=== PATIENT | female | born 1965 | race Caucasian/White ===

== ENCOUNTER 2017-11-28 17:02 | Emergency (ER) | payer BC ==
[2017-11-28] MEDS ORDERED: Iopamidol 755 Mg/ML 75 ML Bottle IV ONE (18:32)
[2017-11-28] MEDS ORDERED: Ketorolac 30 MG/ML SDV IM ONE (20:11)
[2017-11-28] MEDS ORDERED: Cephalexin 500 MG Cap PO ONE (20:12)
--- NOTE | 2017-11-28 20:40 | EDM.PDOC ---
ED HPI GENERAL MEDICAL PROBLEM - General Chief Complaint: Flank Pain Stated Complaint: KIDNEY ISSUES BUT HBP Time Seen by Provider: 11/28/17 17:48 Source of Information: Reports: Patient History Limitations: Reports: No Limitations - History of Present Illness INITIAL COMMENTS - FREE TEXT/NARRATIVE: This pleasant 51-year-old nonsmoking woman has had low back pain 4-5 out of 10 in the past 3 days not resolved by Tylenol, she has felt warm, drinks 64 ounces of fluid a day, she is worried she may have a kidney stone or kidney infection. She's had 4 previous episode of pyelonephritis/kidney infections). She is worried she might have a tumor and is slightly tearful at the thought. In the past she's had significant two months hospitalization for a large abdominal midline incision that healed by secondary intention after she was explored for a abscess in her abdomen etiology indeterminate. No history of cancer. 2 years ago was her last kidney infection. She is smokes a half to three quarters pack for 22 years and 2 packs a day for 10 years for a total of 30+ pack years of smoking. flanks annika Pain Score (Numeric/FACES): 5 - Related Data Allergies Allergy/AdvReac Type Severity Reaction Status Date / Time No Known Allergies Allergy Verified 11/28/17 17:22 Home Meds: Home Meds Cephalexin [Keflex] 500 mg PO QID #40 capsule 11/28/17 [Rx] Past Medical History Gastrointestinal History: Reports: Other (See Below) Other Gastrointestinal History: abd abscess with multiple surgeries Genitourinary History: Reports: Pyelonephritis Social & Family History - Tobacco Use Smoking Status *Q: Current Every Day Smoker Years of Tobacco use: 30 Packs/Tins Daily: 0.5 - Recreational Drug Use Recreational Drug Use: No ED ROS GENERAL - Review of Systems Review Of Systems: See Below Constitutional: Reports: No Symptoms HEENT: Reports: No Symptoms Respiratory: Reports: No Symptoms, Shortness of Breath, Cough Cardiovascular: Reports: No Symptoms Endocrine: Reports: No Symptoms GI/Abdominal: Reports: Abdominal Pain : Reports: Flank Pain Musculoskeletal: Reports: No Symptoms Skin: Reports: No Symptoms Neurological: Reports: No Symptoms Hematologic/Lymphatic: Reports: No Symptoms Immunologic: Reports: No Symptoms Free Text/Narrative/Comment: Mild polyuria polydipsia drinks 64 ounces of fluid per day ED EXAM, RENAL/ - Physical Exam Exam: See Below Text/Narrative:: Pleasant anesthetic pulmonary attended by her who looks older than her age (cigarette smoker 30+ years pack years) Exam Limited By: No Limitations General Appearance: Alert, Mild Distress Eye Exam: Bilateral Eye: Normal Inspection Ears: Normal External Exam, Normal Canal, Hearing Grossly Normal, Normal TMs Nose: Normal Inspection, Normal Mucosa, No Blood Throat/Mouth: Normal Inspection, Normal Lips, Normal Teeth, Normal Gums, Normal Oropharynx, Normal Voice Head: Atraumatic, Normocephalic Neck: Normal Inspection, Supple, Non-Tender Respiratory/Chest: No Respiratory Distress, Rales, Other (Rales bilateral posterior lower 50% of her lungs) Cardiovascular: Normal Peripheral Pulses, Regular Rate, Rhythm, No Edema, No Gallop, Other (Systolic harsh 2/6 crescendo decrescendo murmur left second parasternal intercostal space and right parasternal intercostal space) GI/Abdominal: Normal Bowel Sounds (Female) Exam: Deferred Rectal (Female) Exam: Deferred Back Exam: Normal Inspection, CVA Tenderness (R), CVA Tenderness (L) Extremities: Normal Inspection, Normal Range of Motion, Non-Tender, No Pedal Edema Neurological: Alert, Oriented, CN II-XII Intact, Normal Cognition, Normal Gait, Normal Reflexes Psychiatric: Normal Affect, Other (Was tearful when she began to talk about anxiety about having a potential lung cancer from smoking) Skin Exam: Warm, Intact, Normal Color, No Rash, Other (Large anterior benign abdominal incision upper 50% widened scarred nontender) Lymphatic: No Adenopathy Course - Vital Signs Last Recorded V/S: Last Vital Signs Temp 36.3 C 11/28/17 17:05 Pulse 90 11/28/17 19:35 Resp 16 11/28/17 19:35 BP 161/94 H 11/28/17 19:35 Pulse Ox 93 L 11/28/17 19:35 - Orders/Labs/Meds Orders: Active Orders 24 hr Category Date Time Status Abdomen Pelvis w Cont [CT] Stat Exams 11/28/17 18:21 Taken CULTURE BLOOD [BC] Stat Lab 11/28/17 18:25 Received CULTURE BLOOD [BC] Stat Lab 11/28/17 18:32 Received CULTURE URINE [RM] Stat Lab 11/28/17 20:00 Ordered Labs: Laboratory Tests 11/28/17 11/28/17 11/28/17 Range/Units 17:21 18:25 18:25 WBC 8.5 (4.5-12.0) X10-3/uL RBC 5.68 H (3.23-5.20) x10(6)uL Hgb 17.3 H (11.5-15.5) g/dL Hct 51.2 (30.0-51.3) % MCV 90.0 (80-96) fL MCH 30.5 (27.7-33.6) pg MCHC 33.9 (32.2-35.4) g/dL RDW 14.1 (11.5-15.5) % Plt Count 418 H (125-369) X10(3)uL MPV 8.1 (7.4-10.4) fL Neut % (Auto) 69.9 (46-82) % Lymph % (Auto) 17.5 (13-37) % [place] % (Auto) 5.4 (4-12) % Eos % (Auto) 6 H (1.0-5.0) % Baso % (Auto) 1 (0-2) % Neut # (Auto) 5.9 (1.6-8.3) # Lymph # (Auto) 1.5 (0.6-5.0) # [place] # (Auto) 0.5 (0.0-1.3) # Eos # (Auto) 0.5 (0.0-0.8) # Baso # (Auto) 0.1 (0.0-0.2) # Sodium 134 L (135-145) mmol/L Potassium 3.3 L (3.5-5.3) mmol/L Chloride 97 L (100-110) mmol/L Carbon Dioxide 25 (21-32) mmol/L BUN 9 (7-18) mg/dL Creatinine 0.7 (0.55-1.02) mg/dL Est Cr Clr Drug Dosing 69.06 mL/min Estimated GFR (MDRD) > 60 (>60) BUN/Creatinine Ratio 12.9 (9-20) Glucose 327 H (80-116) mg/dL Lactic Acid (0.4-2.2) mmol/L Calcium 9.0 (8.6-10.2) mg/dL Total Bilirubin 0.4 (0.1-1.3) mg/dL AST 10 (5-25) IU/L ALT 30 (12-36) U/L Alkaline Phosphatase 113 H (56-112) IU/L C-Reactive Protein (0.5-0.9) mg/dL Total Protein 7.9 (6.0-8.0) g/dL Albumin 3.5 (3.5-5.2) g/dL Globulin 4.4 g/dL Albumin/Globulin Ratio 0.8 Urine Color Yellow (YELLOW) Urine Appearance Clear (CLEAR) Urine pH 6.5 (5.0-6.5) Ur Specific Meigs 1.010 (1.010-1.025) Urine Protein Negative (NEGATIVE) mg/dL Urine Glucose (UA) >1000 H (NEGATIVE) mg/dL Urine Ketones Negative (NEGATIVE) mg/dL Urine Occult Blood Negative (NEGATIVE) Urine Nitrite Negative (NEGATIVE) Urine Bilirubin Negative (NEGATIVE) Urine Urobilinogen Normal (NEGATIVE) mg/dL Ur Leukocyte Esterase Small H (NEGATIVE) Urine RBC 0-5 (0) Urine WBC 5-10 (0) Ur Squamous Epith Cells Few H (NS,R,O) Urine Bacteria Moderate H (NS) 11/28/17 11/28/17 Range/Units 18:25 18:25 WBC (4.5-12.0) X10-3/uL RBC (3.23-5.20) x10(6)uL Hgb (11.5-15.5) g/dL Hct (30.0-51.3) % MCV (80-96) fL MCH (27.7-33.6) pg MCHC (32.2-35.4) g/dL RDW (11.5-15.5) % Plt Count (125-369) X10(3)uL MPV (7.4-10.4) fL Neut % (Auto) (46-82) % Lymph % (Auto) (13-37) % [place] % (Auto) (4-12) % Eos % (Auto) (1.0-5.0) % Baso % (Auto) (0-2) % Neut # (Auto) (1.6-8.3) # Lymph # (Auto) (0.6-5.0) # [place] # (Auto) (0.0-1.3) # Eos # (Auto) (0.0-0.8) # Baso # (Auto) (0.0-0.2) # Sodium (135-145) mmol/L Potassium (3.5-5.3) mmol/L Chloride (100-110) mmol/L Carbon Dioxide (21-32) mmol/L BUN (7-18) mg/dL Creatinine (0.55-1.02) mg/dL Est Cr Clr Drug Dosing mL/min Estimated GFR (MDRD) (>60) BUN/Creatinine Ratio (9-20) Glucose (80-116) mg/dL Lactic Acid 1.2 (0.4-2.2) mmol/L Calcium (8.6-10.2) mg/dL Total Bilirubin (0.1-1.3) mg/dL AST (5-25) IU/L ALT (12-36) U/L Alkaline Phosphatase (56-112) IU/L C-Reactive Protein 0.7 (0.5-0.9) mg/dL Total Protein (6.0-8.0) g/dL Albumin (3.5-5.2) g/dL Globulin g/dL Albumin/Globulin Ratio Urine Color (YELLOW) Urine Appearance (CLEAR) Urine pH (5.0-6.5) Ur Specific Me[place] (1.010-1.025) Urine Protein (NEGATIVE) mg/dL Urine Glucose (UA) (NEGATIVE) mg/dL Urine Ketones (NEGATIVE) mg/dL Urine Occult Blood (NEGATIVE) Urine Nitrite (NEGATIVE) Urine Bilirubin (NEGATIVE) Urine Urobilinogen (NEGATIVE) mg/dL Ur Leukocyte Esterase (NEGATIVE) Urine RBC (0) Urine WBC (0) Ur Squamous Epith Cells (NS,R,O) Urine Bacteria (NS) Meds: Medications Discontinued Medications Generic Name Dose Route Start Last Admin Trade Name Freq PRN Reason Stop Dose Admin Cephalexin 500 mg 11/28/17 20:12 11/28/17 20:27 Keflex PO 11/28/17 20:13 500 mg ONETIME ONE Administration Iopamidol 75 ml 11/28/17 18:32 11/28/17 18:48 Isovue-370 (76%) IV 11/28/17 18:33 64 ml ASDIRECTED ONE Administration Ketorolac Tromethamine 60 mg 11/28/17 20:11 11/28/17 20:21 Toradol IM 11/28/17 20:12 60 mg ONETIME ONE Administration Departure - Departure Time of Disposition: 20:20 (Patient on abdominal CT has left interim renal stone. She has no stones in the right kidney. She has mild perinephric stranding.No bowel abnormality except for mild hernia anterior abdominal wall with bowel in the hernia..) Disposition: Home, Self-Care 01 Clinical Impression: Pyelonephritis - Discharge Information *PRESCRIPTION DRUG MONITORING PROGRAM REVIEWED*: Not Applicable *COPY OF PRESCRIPTION DRUG MONITORING REPORT IN PATIENT MEAGHAN: Not Applicable Prescriptions: Cephalexin [Keflex] 500 mg PO QID #40 capsule Referrals: PCP,None [Primary Care Provider] - Forms: ED Department Discharge Additional Instructions: Left kidney stone which is not causing the pain Mild inflammation of both kidneys We're going to give you a antibiotic Keflex 500 mg 4 times a day. Use probiotics with this to avoid diarrhea with antibiotics. Follow-up with your doctor in 1 week or earlier if worse. You have early diabetes with a glucose of 328 Per your request I have started you on metformin 500 mg twice a day. Drink at least 2 quarts of water a day. - My Orders Last 24 Hours: My Active Orders 11/28/17 18:21 Abdomen Pelvis w Cont [CT] Stat 11/28/17 18:25 CULTURE BLOOD [BC] Stat 11/28/17 18:32 CULTURE BLOOD [BC] Stat 11/28/17 20:00 CULTURE URINE [RM] Stat - Assessment/Plan Last 24 Hours: My Active Orders 11/28/17 18:21 Abdomen Pelvis w Cont [CT] Stat 11/28/17 18:25 CULTURE BLOOD [BC] Stat 11/28/17 18:32 CULTURE BLOOD [BC] Stat 11/28/17 20:00 CULTURE URINE [RM] Stat
== END 2017-11-28 20:35 | disposition home or self-care (01) ==
LOC: FB.ED 17:02
DX: N12 Tubulo-interstitial nephritis, not specified as acute or chronic (principal); N20.0 Calculus of kidney; F17.210 Nicotine dependence, cigarettes, uncomplicated
CPT/HCPCS: 36415; 74177; 80053; 81001; 83605; 85025; 86140; 87040; 87086; 87088; 87186; 96372; 99284; A9270; J1885; Q9967